=== PATIENT | female | born 1985 | race Caucasian/White ===

== ENCOUNTER 2018-08-25 13:55 | Outpatient (CLI) | payer BC ==
[~2018-08-25] VITALS: Ht 160 cm; Wt 69.5 kg
[~2018-08-25 13:55] MED LIST: HYDR-3240 PO; IBUP-1223 PO
[2018-08-25] MEDS ORDERED: BETAMETHASONE 6 MG/ML, 5ML IM SCH (14:30)
[2018-08-25 14:44] VITALS: BP 105/55
== END 2018-08-25 17:20 | disposition home or self-care (01) ==
LOC: LDOP 13:55
PROVIDERS: ATTEND Obstetrics & Gynecology
DX: O36.8130 Decreased fetal movements, third trimester, not applicable or unspecified (principal); Z3A.36 36 weeks gestation of pregnancy
CPT/HCPCS: 59025; 96372; 99211; J0702; G0463

== ENCOUNTER 2018-08-26 14:16 | Observation (INO) | payer BC ==
[~2018-08-26] VITALS: Ht 160 cm; Wt 69.5 kg
[2018-08-26] MEDS ORDERED: BETAMETHASONE 6 MG/ML, 5ML IM ONE (14:45)
[2018-08-26 14:57] VITALS: BP 117/74
[2018-08-26] MEDS ORDERED: PLEASE ENTER HEIGHT AND WEIGHT MC SCH (15:00)
== END 2018-08-26 18:22 | disposition home or self-care (01) ==
LOC: LDOP 14:16 → LDIP 15:41
PROVIDERS: ADMIT Obstetrics & Gynecology; ATTEND Obstetrics & Gynecology
DX: Z34.93 Encounter for supervision of normal pregnancy, unspecified, third trimester (principal); Z3A.35 35 weeks gestation of pregnancy
CPT/HCPCS: 96372; G0378; J0702; 59025; 99211; G0463

== ENCOUNTER 2018-08-28 12:10 | Inpatient (IN) | payer BC ==
[~2018-08-28] VITALS: Ht 160 cm; Wt 70.0 kg
[2018-08-28] MEDS ORDERED: NEWBORN KIT ONE (12:54)
[2018-08-28] MEDS ORDERED: METOCLOPRAMIDE 5 MG/ML, 2ML ONE (12:55)
[2018-08-28] MEDS ORDERED: OXYTOCIN 30U/ 0.9% NaCL 500ML 500 ML ONE (12:55)
[2018-08-28] MEDS ORDERED: SODIUM CITRATE/CITRIC ACID 15 ML UDC ONE (12:55)
[2018-08-28] MEDS ORDERED: SODIUM CITRATE/CITRIC ACID 15 ML UDC PO ONE (13:00)
[2018-08-28] MEDS ORDERED: ONDANSETRON 2MG/ML, 2ML IVPush ONE (13:00)
[2018-08-28] MEDS ORDERED: CALCIUM CARBONATE 500 MG TAB.CHEW PO PRN ×2 (13:00→18:30)
[2018-08-28] MEDS ORDERED: METOCLOPRAMIDE 5 MG/ML, 2ML IV ONE (13:00)
[2018-08-28] MEDS ORDERED: LACTATED RINGERS 1,000 ML IVBOLUS ONE (13:00)
[2018-08-28 13:18] LABS: BASOPHILS # (AUTO) 0.06 x10^3/uL (0-0.1); BASOPHILS % (AUTO) 1 % (0-1); EOSINOPHILS # (AUTO) 0.03 x10^3/uL (0-0.4); EOSINOPHILS % (AUTO) 0 % (1-7); LYMPHOCYTES # (AUTO) 2.73 x10^3/uL (1-3.4); LYMPHOCYTES % (AUTO) 25 % (22-44); MD NO; MEAN CORPUSCULAR HEMOGLOBIN 32.5 pg (27.0-34.8); MEAN CORPUSCULAR HGB CONC 33.9 g/dL (32.4-35.8); MEAN CORPUSCULAR VOLUME 95.9 fL (80-100); MEAN PLATELET VOLUME 9.3 fL (7.4-10.4); MONOCYTES # (AUTO) 1.02 x10^3/uL (0.2-0.8); MONOCYTES % (AUTO) 9 % (2-9); NEUTROPHILS # (AUTO) 7.33 x10^3/uL (1.8-6.8); NEUTROPHILS % (AUTO) 66 % (42-75); PLATELET COUNT 241 x10^3/uL (130-400); RED BLOOD COUNT 3.81 x10^6/uL (3.82-5.3); RED CELL DISTRIBUTION WIDTH 13.3 % (9.6-15.2)
[2018-08-28] MEDS ORDERED: PROMETHAZINE 25 MG/ML, 1ML IV PRN (14:00)
[2018-08-28] MEDS ORDERED: HYDROmorphone 2 MG/ML, 1ML IVPush PRN (14:00)
[2018-08-28] MEDS ORDERED: EPHEDRINE 50 MG/ML, 1ML IVPush PRN (14:00)
[2018-08-28] MEDS ORDERED: hydrALAzine 20 MG/ML, 1ML IV PRN (14:00)
[2018-08-28] MEDS ORDERED: ALBUTEROL SULFATE 2.5 MG/3 ML NPPB PRN (14:00)
[2018-08-28] MEDS ORDERED: ONDANSETRON 2MG/ML, 2ML IVPush PRN (14:00)
[2018-08-28] MEDS ORDERED: FENTANYL PF 100 MCG/2ML IV PRN (14:00)
[2018-08-28] MEDS ORDERED: PLEASE ENTER HEIGHT AND WEIGHT MC SCH (14:00)
[2018-08-28] MEDS ORDERED: OXYcodone 5 MG/5 ML ORAL.SOL UDC PO PRN (14:00)
[2018-08-28] MEDS ORDERED: MEPERIDINE/PF 25MG/0.5ML IVPush PRN (14:00)
[2018-08-28] MEDS ORDERED: HYDROcodone/APAP 7.5-325MG/15ML UDC PO PRN (14:00)
[2018-08-28] MEDS ORDERED: MIDAZOLAM 1 MG/ML, 2ML IV PRN (14:00)
[2018-08-28] MEDS ORDERED: LABETALOL 5MG/ML, 20ML IV PRN (14:00)
[2018-08-28] MEDS ORDERED: OXYTOCIN 10 UNITS/ML, 1ML ONE (14:01)
[2018-08-28] MEDS ORDERED: PHENYLEPHRINE 10 MG/ML ONE (14:01)
[2018-08-28] MEDS ORDERED: EPHEDRINE 50 MG/ML, 1ML ONE (14:01)
[2018-08-28] MEDS ORDERED: KETOROLAC 30 MG/1 ML ONE (14:01)
[2018-08-28] MEDS ORDERED: CEFAZOLIN 1,000 MG ONE (14:01)
[2018-08-28] MEDS ORDERED: FENTANYL PF 100 MCG/2ML ONE (14:01)
[2018-08-28] MEDS ORDERED: ONDANSETRON 2MG/ML, 2ML ONE (14:01)
[2018-08-28] MEDS ORDERED: DEXAMETHASONE 4 MG/ML, 1ML ONE (14:01)
[2018-08-28] MEDS ORDERED: GLYCOPYRROLATE 0.4 MG/2 ML, 2ML ONE (16:36)
[2018-08-28] MEDS ORDERED: HYDROmorphone 2 MG/ML, 1ML ONE (17:07)
[2018-08-28] MEDS: LACTATED RINGERS 1,000 ML IV SCH ×3 (18:02→18:06)
[2018-08-28] MEDS: OXYTOCIN 30U/ 0.9% NaCL 500ML 500 ML IV SCH ×2 (18:06→18:10)
[2018-08-28] MEDS ORDERED: SIMETHICONE 80 MG CHEW TAB PO PRN (18:30)
[2018-08-28] MEDS ORDERED: MISOPROSTOL 200 MCG TABLET SL PRN (18:30)
[2018-08-28] MEDS ORDERED: ONDANSETRON 2MG/ML, 2ML IV PRN (18:30)
[2018-08-28] MEDS ORDERED: HYDROcodone/APAP 7.5-325MG/15ML UDC ONE (19:34)
[2018-08-28 20:20] VITALS: BP 97/61
[2018-08-28] MEDS: KETOROLAC 30 MG/1 ML IV SCH (23:21)
[2018-08-28] MEDS: DOCUSATE 100 MG CAPSULE PO SCH (23:21)
[2018-08-29 00:40] VITALS: BP 97/51
[2018-08-29] MEDS: LACTATED RINGERS 1,000 ML IV SCH ×7 (02:02→19:00)
[2018-08-29 02:06] LABS: BASOPHILS # (AUTO) 0.07 x10^3/uL (0-0.1); BASOPHILS % (AUTO) 0 % (0-1); EOSINOPHILS % (AUTO) 0 % (1-7); LYMPHOCYTES # (AUTO) 1.84 x10^3/uL (1-3.4); LYMPHOCYTES % (AUTO) 10 % (22-44); MD NO; MEAN CORPUSCULAR HGB CONC 32.1 g/dL (32.4-35.8); MEAN CORPUSCULAR VOLUME 96.5 fL (80-100); MEAN PLATELET VOLUME 8.9 fL (7.4-10.4); MONOCYTES # (AUTO) 1.08 x10^3/uL (0.2-0.8); MONOCYTES % (AUTO) 6 % (2-9); NEUTROPHILS # (AUTO) 14.78 x10^3/uL (1.8-6.8); NEUTROPHILS % (AUTO) 83 % (42-75); PLATELET COUNT 214 x10^3/uL (130-400); RED BLOOD COUNT 3.45 x10^6/uL (3.82-5.3); RED CELL DISTRIBUTION WIDTH 13.3 % (9.6-15.2)
[2018-08-29] MEDS: OXYTOCIN 30U/ 0.9% NaCL 500ML 500 ML IV SCH ×4 (04:02→14:06)
[2018-08-29] MEDS: KETOROLAC 30 MG/1 ML IV SCH ×3 (05:18→17:30)
[2018-08-29 05:30] VITALS: BP 93/59
[2018-08-29] MEDS: OXYcodone/APAP 5/325MG TABLET PO PRN ×4 (05:51→21:34)
[2018-08-29 07:15] VITALS: BP 100/66
[2018-08-29] MEDS: DOCUSATE 100 MG CAPSULE PO SCH ×2 (08:44→21:34)
[2018-08-29] MEDS: PRENATAL VIT/IRON/FA 1 EACH TABLET PO SCH (08:44)
[2018-08-29 12:55] VITALS: BP 105/70
[2018-08-29] MEDS: IBUPROFEN 800 MG TABLET PO PRN (17:37)
[2018-08-29 19:30] VITALS: BP 96/64
[2018-08-30] MEDS: OXYTOCIN 30U/ 0.9% NaCL 500ML 500 ML IV SCH ×2 (00:02→00:06)
[2018-08-30] MEDS: LACTATED RINGERS 1,000 ML IV SCH ×3 (00:02→02:02)
[2018-08-30] MEDS: OXYcodone/APAP 5/325MG TABLET PO PRN ×4 (03:40→20:07)
[2018-08-30] MEDS: IBUPROFEN 800 MG TABLET PO PRN ×3 (03:40→22:59)
[2018-08-30 07:45] VITALS: BP 90/61
[2018-08-30] MEDS: PRENATAL VIT/IRON/FA 1 EACH TABLET PO SCH (09:00)
[2018-08-30] MEDS: DOCUSATE 100 MG CAPSULE PO SCH ×2 (09:01→22:59)
[2018-08-30 19:15] VITALS: BP 104/65
[2018-08-31] MEDS ORDERED: POLYETHYLENE GLYCOL 17 GM PACKET PO SCH (04:00)
[2018-08-31 07:10] VITALS: BP 108/73
[2018-08-31] MEDS: DOCUSATE 100 MG CAPSULE PO SCH ×2 (08:43→21:00)
[2018-08-31] MEDS: PRENATAL VIT/IRON/FA 1 EACH TABLET PO SCH (08:43)
[2018-08-31] MEDS: IBUPROFEN 800 MG TABLET PO PRN ×2 (08:43→17:01)
[2018-08-31 20:00] VITALS: BP 102/66
[2018-09-01] MEDS: IBUPROFEN 800 MG TABLET PO PRN ×2 (02:00→10:16)
[2018-09-01 07:14] VITALS: BP 111/80
[2018-09-01] MEDS ORDERED: IBUP-1222 PO (07:53)
[2018-09-01] MEDS ORDERED: DOCU-131 PO (08:01)
[2018-09-01] MEDS ORDERED: OXYC-302 PO (08:01)
[2018-09-01] MEDS: DOCUSATE 100 MG CAPSULE PO SCH (09:00)
[2018-09-01] MEDS: PRENATAL VIT/IRON/FA 1 EACH TABLET PO SCH (09:00)
[2018-09-01] MEDS: OXYcodone/APAP 5/325MG TABLET PO PRN (10:22)
== END 2018-09-01 11:43 | disposition home or self-care (01) | DRG 788 ==
LOC: LDIP 12:10 → 2NW 20:47
PROVIDERS: ADMIT Obstetrics & Gynecology; ATTEND Obstetrics & Gynecology
PROC: 10D00Z1 Extraction of Products of Conception, Low, Open Approach (ICD-10-PCS; principal; 2018-08-28)
DX: O36.5930 Maternal care for other known or suspected poor fetal growth, third trimester, not applicable or unspecified (principal); O34.219 Maternal care for unspecified type scar from previous cesarean delivery; O36.8130 Decreased fetal movements, third trimester, not applicable or unspecified; O69.1XX0 Labor and delivery complicated by cord around neck, with compression, not applicable or unspecified; O76 Abnormality in fetal heart rate and rhythm complicating labor and delivery; Z3A.36 36 weeks gestation of pregnancy; Z37.0 Single live birth
CPT/HCPCS: 36415; 82803; 85025; 86850; 86900; G0378; J0690; J1100; J1170; J1885; J2405; J3010; J2370; J2590; J2765; J7120